=== PATIENT | female | born 1985 | race African-American/Black ===

== ENCOUNTER 2020-11-09 20:41 | Emergency (ER) | payer MEDICAID ==
[~2020-11-09] VITALS: Ht 149.9 cm; Wt 77.0 kg
[2020-11-09] MEDS ORDERED: ONDANSETRON HCL 4MG/2ML INJ IV STA (21:55)
[2020-11-09] MEDS ORDERED: MORPHINE SULFATE 4 MG/ML CPJ (NOT FOR IM USE) IV STA (21:55)
[2020-11-09] MEDS ORDERED: ACETAMINOPHEN 325MG TABLET PO ONE (22:00)
[2020-11-09] MEDS ORDERED: SODIUM CHLORIDE 0.9% 1,000 ML IV ONE (22:00)
[2020-11-09 23:40] LABS: BASOPHILS % 0.8 % (0.0-2.0); EOSINOPHILS % 0.2 % (0.0-5.0); HEMATOCRIT. 41.8 % (36.0-48.0); LYMPHOCYTES % 21.2 % (20.0-50.0); MEAN CORPUSCULAR HEMOGLOBIN 27.9 pg (28.0-32.0); MEAN CORPUSCULAR VOLUME 83.2 fL (81.0-99.0); MEAN PLATELET VOLUME 11.5 fl (7.4-10.4); NEUTROPHILS % 68.8 % (40.0-76.0); PLATELET 150 x1000/uL (130-400); RED BLOOD CELL COUNT 5.02 mill/uL (4.2-5.4); RED CELL DISTRIBUTION WIDTH 13.5 % (11.6-14.6)
[2020-11-09 23:45] LABS: CHLORIDE 103 mEq/L (98-107)
[2020-11-10 00:08] LABS: CLARITY URINE CLOUDY (CLEAR); COLOR URINE DARK YELLOW (YELLOW); KETONES URINE 1+ (NEGATIVE); LEUKOCYTE ESTERASE URINE TRACE (NEGATIVE); NITRITE URINE NEGATIVE (NEGATIVE); OCCULT BLOOD URINE NEGATIVE (NEGATIVE); PROTEIN URINE 1+ (NEGATIVE); SPECIFIC GRAVITY URINE 1.028 (1.005-1.030)
[2020-11-10 00:16] LABS: HCG SCREEN NEGATIVE
[2020-11-10 04:01] VITALS: BP 117/76
== END 2020-11-10 04:02 | disposition home or self-care (01) ==
LOC: ER 20:41
DX: N39.0 Urinary tract infection, site not specified (principal); Z87.442 Personal history of urinary calculi
CPT/HCPCS: 36415; 71045; 76700; 80053; 81003; 83690; 84703; 85025; 93005; 96361; 96374; 96375; 99285; J2270; J2405; J7030

== ENCOUNTER 2022-08-18 09:57 | Emergency (ER) | payer MEDICAID ==
[~2022-08-18] VITALS: Ht 149.9 cm; Wt 82.0 kg
[2022-08-18] MEDS ORDERED: MORPHINE SULFATE 4 MG/ML CPJ (NOT FOR IM USE) IV ONE (11:15)
[2022-08-18 11:58] LABS: CLARITY URINE CLOUDY (CLEAR); COLOR URINE YELLOW (YELLOW); KETONES URINE TRACE (NEGATIVE); LEUKOCYTE ESTERASE URINE NEGATIVE (NEGATIVE); NITRITE URINE NEGATIVE (NEGATIVE); OCCULT BLOOD URINE TRACE (NEGATIVE); PH URINE 6.5 (4.5-8.0); PROTEIN URINE 1+ (NEGATIVE); SPECIFIC GRAVITY URINE 1.036 (1.005-1.030)
[2022-08-18 11:58] LABS: BASOPHILS % 1.1 % (0.0-2.0); EOSINOPHILS % 8.5 % (0.0-5.0); HEMATOCRIT. 40.3 % (36.0-48.0); HEMOGLOBIN. 13.1 g/dL (12.0-16.0); LYMPHOCYTES % 30.1 % (20.0-50.0); MEAN CORPUSCULAR HEMOGLOBIN 27.7 pg (28.0-32.0); MEAN CORPUSCULAR VOLUME 85.3 fL (81.0-99.0); MEAN PLATELET VOLUME 12.6 fl (7.4-10.4); NEUTROPHILS % 54.3 % (40.0-76.0); PLATELET 167 x1000/uL (130-400); RED BLOOD CELL COUNT 4.73 mill/uL (4.2-5.4); RED CELL DISTRIBUTION WIDTH 13.8 % (11.6-14.6)
[2022-08-18 12:00] LABS: CHLORIDE 107 mEq/L (98-107)
[2022-08-18 12:03] LABS: HCG SCREEN NEGATIVE; PROTHROMBIN TIME 10.9 sec (9.6-11.0)
[2022-08-18] MEDS ORDERED: CEPH500T PO (12:57)
[2022-08-18] MEDS ORDERED: ONDA4TAB50 MT (13:12)
[2022-08-18] MEDS ORDERED: OXYC-100 MT ×2 (13:12→15:50)
[2022-08-18] MEDS ORDERED: KETOROLAC 30MG/ML VIAL IV ONE (14:15)
[2022-08-18 14:20] VITALS: BP 122/78
== END 2022-08-18 14:18 | disposition home or self-care (01) ==
LOC: ER 09:57
DX: K80.20 Calculus of gallbladder without cholecystitis without obstruction (principal); N39.0 Urinary tract infection, site not specified; K76.0 Fatty (change of) liver, not elsewhere classified
CPT/HCPCS: 36415; 76705; 80053; 81003; 83690; 84703; 85025; 85610; 96374; 96375; 99284; J1885; J2270

== ENCOUNTER 2022-10-26 06:22 | Emergency (ER) | payer MEDICAID ==
[~2022-10-26] VITALS: Ht 162.6 cm; Wt 98.0 kg
[~2022-10-26 06:22] MED LIST: CEPH500T PO; ONDA4TAB50 MT; OXYC-100 MT
[2022-10-26 06:30] VITALS: BP 120/86
[2022-10-26] MEDS ORDERED: MAGNESIUM/ALUMINUM HYDROXIDE/SIMETHICONE 30ML UDC PO ONE (09:00)
[2022-10-26] MEDS ORDERED: ONDANSETRON 4MG ODT PO ONE (09:00)
[2022-10-26] MEDS ORDERED: FAMOTIDINE 20MG TABLET PO ONE (09:00)
[2022-10-26] MEDS ORDERED: IBUP-2028 MT (12:00)
== END 2022-10-26 12:29 | disposition home or self-care (01) ==
LOC: ER 06:22
DX: J06.9 Acute upper respiratory infection, unspecified (principal); Z20.822 Contact with and (suspected) exposure to COVID-19; Z32.02 Encounter for pregnancy test, result negative
CPT/HCPCS: 81025; 87426; 87804; 99284; Q0162

== ENCOUNTER 2022-12-03 17:36 | Emergency (ER) | payer MEDICAID ==
[~2022-12-03] VITALS: Ht 160 cm; Wt 77.0 kg
[~2022-12-03 17:36] MED LIST changes: +IBUP-2028 MT
[2022-12-03 17:38] VITALS: BP 122/74
[2022-12-03] MEDS ORDERED: ACETAMINOPHEN WITH CODEINE 300/30MG TABLET PO ONE (18:15)
[2022-12-03 19:54] LABS: BASOPHILS % 0.8 % (0.0-2.0); EOSINOPHILS % 4.4 % (0.0-5.0); HEMATOCRIT. 37.5 % (36.0-48.0); HEMOGLOBIN. 12.6 g/dL (12.0-16.0); MEAN CORPUSCULAR HEMOGLOBIN 28.6 pg (28.0-32.0); MEAN CORPUSCULAR VOLUME 84.9 fL (81.0-99.0); MEAN PLATELET VOLUME 11.7 fl (7.4-10.4); MONOCYTES % 3.9 % (2.0-8.0); NEUTROPHILS % 72.9 % (40.0-76.0); PLATELET 167 x1000/uL (130-400); RED BLOOD CELL COUNT 4.42 mill/uL (4.2-5.4); RED CELL DISTRIBUTION WIDTH 13.4 % (11.6-14.6)
[2022-12-03 20:05] LABS: HCG SCREEN NEGATIVE
[2022-12-03 20:13] LABS: CHLORIDE 107 mEq/L (98-107)
[2022-12-03] MEDS ORDERED: IBUP-2030 PO (22:41)
== END 2022-12-04 00:02 | disposition home or self-care (01) ==
LOC: ER 17:36
DX: S82.891A Other fracture of right lower leg, initial encounter for closed fracture (principal); M79.671 Pain in right foot; W01.0XXA Fall on same level from slipping, tripping and stumbling without subsequent striking against object, initial encounter; Y93.89 Activity, other specified; Y92.89 Other specified places as the place of occurrence of the external cause; Y99.8 Other external cause status; Z79.899 Other long term (current) drug therapy
CPT/HCPCS: 29505; 36415; 73590; 73600; 73706; 80053; 81025; 84703; 85025; 99285

== ENCOUNTER 2023-03-23 17:09 | Emergency (ER) | payer MEDICAID ==
[~2023-03-23] VITALS: Ht 149.9 cm; Wt 75.0 kg
[~2023-03-23 17:09] MED LIST changes: +IBUP-2030 PO
[2023-03-23 20:46] LABS: BASOPHILS % 0.7 % (0.0-2.0); HEMATOCRIT. 36.9 % (36.0-48.0); HEMOGLOBIN. 12.3 g/dL (12.0-16.0); LYMPHOCYTES % 18.8 % (20.0-50.0); MEAN CORPUSCULAR HEMOGLOBIN 28.1 pg (28.0-32.0); MEAN PLATELET VOLUME 11.9 fl (7.4-10.4); MONOCYTES % 4.2 % (2.0-8.0); NEUTROPHILS % 74.3 % (40.0-76.0); PLATELET 162 x1000/uL (130-400); RED CELL DISTRIBUTION WIDTH 13.5 % (11.6-14.6)
[2023-03-23 20:52] LABS: CHLORIDE 107 mEq/L (98-107); HCG SCREEN NEGATIVE; PROTHROMBIN TIME 10.7 sec (9.6-11.0)
[2023-03-23] MEDS ORDERED: CEPH500C2 PO (22:54)
[2023-03-23] MEDS ORDERED: CEPHALEXIN 250MG CAPSULE PO ONE (23:00)
[2023-03-23] MEDS ORDERED: LIDOCAINE HCL 1% 20ML VIAL (Pyxis) INJ INFIL ONE (23:15)
[2023-03-24] MEDS ORDERED: OXYCODONE HCL/ACETAMINOPHEN 5/325MG TABLET PO ONE
[2023-03-24 00:11] VITALS: BP 110/80
== END 2023-03-24 00:40 | disposition home or self-care (01) ==
LOC: ER 17:09
DX: L72.0 Epidermal cyst (principal); Z79.899 Other long term (current) drug therapy
CPT/HCPCS: 10060; 36415; 70491; 80048; 81025; 84443; 84703; 85025; 85610; 86850; 86900; 86901; 99285; Z7610

== ENCOUNTER 2023-08-11 17:56 | Emergency (ER) | payer MEDICAID ==
[~2023-08-11] VITALS: Ht 149.9 cm; Wt 75.0 kg
[~2023-08-11 17:56] MED LIST changes: -CEPH500T PO; -IBUP-2028 MT; -IBUP-2030 PO; -OXYC-100 MT
[2023-08-11 18:03] VITALS: O2SAT 99
[2023-08-11 18:33] LABS: CLARITY URINE CLOUDY (CLEAR); COLOR URINE DARK YELLOW (YELLOW); GLUCOSE URINE NEGATIVE (NEGATIVE); KETONES URINE 2+ (NEGATIVE); LEUKOCYTE ESTERASE URINE TRACE (NEGATIVE); NITRITE URINE NEGATIVE (NEGATIVE); OCCULT BLOOD URINE NEGATIVE (NEGATIVE); PROTEIN URINE TRACE (NEGATIVE)
[2023-08-11 18:59] LABS: BASOPHILS % 0.9 % (0.0-2.0); DIFFERENTIAL COMMENT 0; EOSINOPHILS % 4.8 % (0.0-5.0); HEMOGLOBIN. 11.2 g/dL (12.0-16.0); LYMPHOCYTES % 18.9 % (20.0-50.0); MEAN CORPUSCULAR VOLUME 84.8 fL (81.0-99.0); MEAN PLATELET VOLUME 12.1 fl (7.4-10.4); MONOCYTES % 3.9 % (2.0-8.0); NEUTROPHILS % 71.5 % (40.0-76.0); PLATELET 139 x1000/uL (130-400); RED BLOOD CELL COUNT 4.01 mill/uL (4.2-5.4); RED CELL DISTRIBUTION WIDTH 13.1 % (11.6-14.6); WHITE BLOOD COUNT 8.3 x1000/uL (4.5-11.0)
[2023-08-11 19:12] LABS: BACTERIA URINE 2+; RBC URINE 0-2 /hpf (0-2); SQUAMOUS EPITHELIAL CELL URINE 1+ /lpf (RARE/1+); WBC URINE 0-2 /hpf (0-2)
[2023-08-11 19:14] LABS: CHLORIDE 107 mEq/L (98-107); INDEX HEMOLYSI 1 (1-3); INDEX ICTERIC 1 (1-4); INDEX LIPEMIC 1 (1-3); POTASSIUM 3.5 mEq/L (3.5-5.1); SODIUM 138 mEq/L (136-145)
[2023-08-11 19:23] LABS: ALBUMIN 3.3 g/dL (3.4-5.0); ASPARTATE AMINOTRANSFERASE 11 IU/L (15-37); BILIRUBIN TOTAL 0.6 mg/dL (0.1-1.0); CALCIUM 8.3 mg/dL (8.5-10.1); CARBON DIOXIDE 24 mEq/L (21-32); CREATININE 0.6 mg/dL (0.6-1.3); GLUCOSE 83 mg/dL (70-105); PROTEIN TOTAL 7.9 g/dL (6.0-8.3); UREA NITROGEN BLOOD 4 mg/dL (7-21)
[2023-08-11 19:37] LABS: ALANINE AMINOTRANSFERASE 19 IU/L (13-61); B-HCG QUANTITATIVE 128069 mIU/mL (<3)
[2023-08-11] MEDS ORDERED: CEPH500C2 MT (21:43)
[2023-08-11] MEDS ORDERED: TOPUD PO (21:44)
[2023-08-11 21:50] VITALS: BP 121/69; PULSE 84; RESP 18; TEMP 98.2
== END 2023-08-11 21:59 | disposition home or self-care (01) ==
LOC: ER 17:56
DX: O26.891 Other specified pregnancy related conditions, first trimester (principal); R10.2 Pelvic and perineal pain; Z3A.11 11 weeks gestation of pregnancy
CPT/HCPCS: 36415; 76770; 76801; 76857; 80053; 81003; 84702; 85025; 99284

== ENCOUNTER 2023-09-17 09:33 | Inpatient (IN) | payer MEDICAID ==
[~2023-09-17] VITALS: Ht 149.9 cm; Wt 73.5 kg
[~2023-09-17 09:33] MED LIST changes: -ONDA4TAB50 MT; +TOPUD PO
[2023-09-17] MEDS ORDERED: OXYCODONE HCL/ACETAMINOPHEN 5/325MG TABLET PO ONE (10:15)
[2023-09-17 10:52] LABS: BASOPHILS % 0.8 % (0.0-2.0); EOSINOPHILS % 3.1 % (0.0-5.0); HEMOGLOBIN. 11.7 g/dL (12.0-16.0); LYMPHOCYTES % 14.9 % (20.0-50.0); MEAN CORPUSCULAR HEMOGLOBIN 28.2 pg (28.0-32.0); MEAN CORPUSCULAR HGB CONC 33.4 g/dL (31.0-37.0); MEAN CORPUSCULAR VOLUME 84.3 fL (81.0-99.0); MEAN PLATELET VOLUME 12.2 fl (7.4-10.4); MONOCYTES % 5.1 % (2.0-8.0); NEUTROPHILS % 76.1 % (40.0-76.0); PLATELET 150 x1000/uL (130-400); RED BLOOD CELL COUNT 4.16 mill/uL (4.2-5.4); RED CELL DISTRIBUTION WIDTH 12.9 % (11.6-14.6); WHITE BLOOD COUNT 7.4 x1000/uL (4.5-11.0)
[2023-09-17 11:02] LABS: CHLORIDE 106 mEq/L (98-107); INDEX HEMOLYSI 1 (1-3); INDEX ICTERIC 1 (1-4); INDEX LIPEMIC 1 (1-3); SODIUM 138 mEq/L (136-145)
[2023-09-17 11:08] LABS: CLARITY URINE CLEAR (CLEAR); COLOR URINE DARK YELLOW (YELLOW); GLUCOSE URINE NEGATIVE (NEGATIVE); KETONES URINE 2+ (NEGATIVE); LEUKOCYTE ESTERASE URINE 1+ (NEGATIVE); NITRITE URINE POSITIVE (NEGATIVE); OCCULT BLOOD URINE NEGATIVE (NEGATIVE); PROTEIN URINE 1+ (NEGATIVE); SPECIFIC GRAVITY URINE 1.029 (1.005-1.030)
[2023-09-17 11:23] LABS: MUCUS URINE TRACE /lpf (< = 2+); RBC URINE 0-2 /hpf (0-2); SQUAMOUS EPITHELIAL CELL URINE 2+ /lpf (RARE/1+)
[2023-09-17 11:24] LABS: BACTERIA URINE TRACE
[2023-09-17 11:25] LABS: ALANINE AMINOTRANSFERASE 395 IU/L (13-61); ALBUMIN 3.1 g/dL (3.4-5.0); ASPARTATE AMINOTRANSFERASE 452 IU/L (15-37); CALCIUM 8.1 mg/dL (8.5-10.1); CARBON DIOXIDE 28 mEq/L (21-32); CREATININE 0.6 mg/dL (0.6-1.3); GLUCOSE 97 mg/dL (70-105); PROTEIN TOTAL 7.7 g/dL (6.0-8.3); UREA NITROGEN BLOOD 4 mg/dL (7-21)
[2023-09-17] MEDS ORDERED: NITROFURANTOIN 100MG M/M CAPSULE PO ONE (14:15)
[2023-09-17] MEDS ORDERED: ACETAMINOPHEN 325MG TABLET PO PRN (15:45)
[2023-09-17] MEDS ORDERED: POTASSIUM CHLORIDE 20MEQ TABLET SR PO NR (15:45)
[2023-09-17] MEDS ORDERED: IPRATROPIUM/ALBUTEROL 0.5-3(2.5)MG/3ML NEB HHN PRN (15:45)
[2023-09-17] MEDS ORDERED: SODIUM CHLORIDE 0.9% 1,000 ML IV SCH (15:45)
[2023-09-17 17:22] VITALS: PULSE 68; RESP 15
[2023-09-17] MEDS ORDERED: ONDANSETRON 4MG ODT PO ONE (20:30)
[2023-09-17] MEDS ORDERED: ONDANSETRON 4MG ODT PO NR (22:06)
[2023-09-18] VITALS (7 sets, daily range): BP systolic 95–140; BP diastolic 58–75; PULSE 69–80; RESP 17–19; TEMP 97.1–98.1
[2023-09-18] MEDS: ACETAMINOPHEN 325MG TABLET PO PRN (03:33)
[2023-09-18] MEDS: HYDROCODONE/ACETAMINOPHEN 5/325MG TABLET PO PRN ×2 (03:50→11:40)
[2023-09-18] MEDS: SODIUM CHLORIDE 0.9% 1,000 ML IV SCH ×2 (03:51→21:45)
[2023-09-18 07:06] LABS: BASOPHILS % 0.4 % (0.0-2.0); EOSINOPHILS % 4.1 % (0.0-5.0); HEMATOCRIT. 32.5 % (36.0-48.0); HEMOGLOBIN. 10.9 g/dL (12.0-16.0); LYMPHOCYTES % 23.3 % (20.0-50.0); MEAN CORPUSCULAR HEMOGLOBIN 28.8 pg (28.0-32.0); MEAN CORPUSCULAR HGB CONC 33.5 g/dL (31.0-37.0); MEAN CORPUSCULAR VOLUME 86.1 fL (81.0-99.0); MEAN PLATELET VOLUME 11.9 fl (7.4-10.4); MONOCYTES % 5.6 % (2.0-8.0); NEUTROPHILS % 66.6 % (40.0-76.0); PLATELET 135 x1000/uL (130-400); RED BLOOD CELL COUNT 3.78 mill/uL (4.2-5.4); RED CELL DISTRIBUTION WIDTH 13.2 % (11.6-14.6); WHITE BLOOD COUNT 7.3 x1000/uL (4.5-11.0)
[2023-09-18] MEDS ORDERED: NALOXONE HCL 0.4MG/ML VIAL IV PRN (07:15)
[2023-09-18 07:49] LABS: INDEX HEMOLYSI 1 (1-3); INDEX ICTERIC 1 (1-4); INDEX LIPEMIC 1 (1-3)
[2023-09-18 07:50] LABS: CALCIUM 8.1 mg/dL (8.5-10.1); CARBON DIOXIDE 23 mEq/L (21-32); CHLORIDE 108 mEq/L (98-107); GLUCOSE 77 mg/dL (70-105); POTASSIUM 3.3 mEq/L (3.5-5.1); SODIUM 139 mEq/L (136-145); UREA NITROGEN BLOOD 4 mg/dL (7-21)
[2023-09-18 07:54] LABS: ALANINE AMINOTRANSFERASE 341 IU/L (13-61); ASPARTATE AMINOTRANSFERASE 221 IU/L (15-37); BILIRUBIN TOTAL 0.9 mg/dL (0.1-1.0); CREATININE 0.5 mg/dL (0.6-1.3); PROTEIN TOTAL 7.3 g/dL (6.0-8.3)
[2023-09-18] MEDS: NITROFURANTOIN 100MG M/M CAPSULE PO SCH ×2 (08:20→21:45)
[2023-09-18 10:06] LABS: BILIRUBIN DIRECT 0.2 mg/dL (0.0-0.2); BILIRUBIN TOTAL 0.9 mg/dL (0.1-1.0); PROTEIN TOTAL 7.5 g/dL (6.0-8.3)
[2023-09-18 12:01] LABS: *AMPHETAMINES SCREEN URINE NEGATIVE (NEGATIVE); *BARBITURATES SCREEN URINE NEGATIVE (NEGATIVE); *BENZODIAZEPINES SCREEN URINE NEGATIVE (NEGATIVE); *COCAINE SCREEN URINE NEGATIVE (NEGATIVE); CANNABINOID URINE SCREEN NEGATIVE (NEGATIVE); ECSTASY MDMA SCREEN URINE NEGATIVE (NEGATIVE); OPIATES URINE SCREEN NEGATIVE (NEGATIVE); PHENCYCLIDINE URINE SCREEN NEGATIVE (NEGATIVE)
[2023-09-18 12:23] LABS: HEPATITIS B SURFACE ANTIGEN NEGATIVE
[2023-09-18 12:53] LABS: HEPATITIS C VIR.AB 0.06 INDEXVAL (0.00-0.80)
[2023-09-18] MEDS: HYDROMORPHONE HCL/PF 2MG/ML CPJ IV PRN (13:04)
[2023-09-18 13:42] LABS: METHADONE URINE SCREEN INVALID (NEGATIVE)
[2023-09-18] MEDS: ONDANSETRON HCL 4MG/2ML INJ IV PRN (17:38)
[2023-09-19] VITALS: BP 117/56; PULSE 82; RESP 20; TEMP 97.2
[2023-09-19 04:00] VITALS: BP 108/55; PULSE 83; RESP 20; TEMP 97.9
[2023-09-19] MEDS: ONDANSETRON HCL 4MG/2ML INJ IV PRN (07:01)
[2023-09-19 07:13] LABS: BILIRUBIN DIRECT 0.2 mg/dL (0.0-0.2); BILIRUBIN TOTAL 0.9 mg/dL (0.1-1.0); PROTEIN TOTAL 7.6 g/dL (6.0-8.3)
[2023-09-19] MEDS: HYDROMORPHONE HCL/PF 2MG/ML CPJ IV PRN ×3 (07:18→20:54)
[2023-09-19 08:00] VITALS: BP 112/71; PULSE 86; RESP 18; TEMP 97.7
[2023-09-19] MEDS: NITROFURANTOIN 100MG M/M CAPSULE PO SCH ×2 (09:00→20:51)
[2023-09-19 12:06] VITALS: BP 112/68; PULSE 72; RESP 19; TEMP 97.7
[2023-09-19] MEDS: SODIUM CHLORIDE 0.9% 1,000 ML IV SCH (13:05)
[2023-09-19 16:00] VITALS: BP 95/54; PULSE 72; RESP 18; TEMP 97.5
[2023-09-19 20:00] VITALS: BP 93/57; PULSE 75; RESP 20; TEMP 98.1
[2023-09-20] VITALS: BP 104/66; PULSE 74; RESP 18; TEMP 97.8
[2023-09-20 04:00] VITALS: BP 89/44; PULSE 80; RESP 20; TEMP 97.2
[2023-09-20] MEDS: ACETAMINOPHEN 325MG TABLET PO PRN (04:00)
[2023-09-20] MEDS: SODIUM CHLORIDE 0.9% 1,000 ML IV SCH ×2 (06:37→22:14)
[2023-09-20 06:50] LABS: BASOPHILS % 0.5 % (0.0-2.0); EOSINOPHILS % 3.1 % (0.0-5.0); HEMATOCRIT. 29.7 % (36.0-48.0); LYMPHOCYTES % 14.6 % (20.0-50.0); MEAN CORPUSCULAR HEMOGLOBIN 28.5 pg (28.0-32.0); MEAN CORPUSCULAR HGB CONC 33.7 g/dL (31.0-37.0); MEAN CORPUSCULAR VOLUME 84.5 fL (81.0-99.0); MEAN PLATELET VOLUME 12.1 fl (7.4-10.4); MONOCYTES % 4.8 % (2.0-8.0); PLATELET 121 x1000/uL (130-400); RED BLOOD CELL COUNT 3.52 mill/uL (4.2-5.4); RED CELL DISTRIBUTION WIDTH 13.3 % (11.6-14.6); WHITE BLOOD COUNT 7.5 x1000/uL (4.5-11.0)
[2023-09-20 08:00] VITALS: BP 110/67; PULSE 91; RESP 20; TEMP 98.4
[2023-09-20 08:39] LABS: CHLORIDE 108 mEq/L (98-107); INDEX HEMOLYSI 1 (1-3); INDEX ICTERIC 1 (1-4); INDEX LIPEMIC 1 (1-3); POTASSIUM 2.9 mEq/L (3.5-5.1); SODIUM 138 mEq/L (136-145)
[2023-09-20 08:47] LABS: ALANINE AMINOTRANSFERASE 238 IU/L (13-61); ALBUMIN 2.5 g/dL (3.4-5.0); ASPARTATE AMINOTRANSFERASE 92 IU/L (15-37); BILIRUBIN DIRECT 0.2 mg/dL (0.0-0.2); BILIRUBIN TOTAL 1.2 mg/dL (0.1-1.0); CARBON DIOXIDE 23 mEq/L (21-32); CREATININE 0.6 mg/dL (0.6-1.3); GLUCOSE 78 mg/dL (70-105); PROTEIN TOTAL 6.3 g/dL (6.0-8.3); UREA NITROGEN BLOOD 2 mg/dL (7-21)
[2023-09-20] MEDS: NITROFURANTOIN 100MG M/M CAPSULE PO SCH ×2 (09:46→20:36)
[2023-09-20] MEDS: ONDANSETRON HCL 4MG/2ML INJ IV PRN (11:21)
[2023-09-20 12:00] VITALS: BP 126/75; PULSE 79; RESP 18; TEMP 99.5
[2023-09-20 16:00] VITALS: BP 109/65; PULSE 86; RESP 18; TEMP 98.4
[2023-09-20 20:00] VITALS: BP 104/66; PULSE 96; RESP 20; TEMP 97.7
[2023-09-20] MEDS: HYDROMORPHONE HCL/PF 2MG/ML CPJ IV PRN (20:37)
[2023-09-21] VITALS: BP 108/60; PULSE 100; RESP 20; TEMP 97.2
[2023-09-21 04:00] VITALS: BP 105/63; PULSE 82; RESP 20; TEMP 97.1
[2023-09-21] MEDS ORDERED: POTASSIUM CHLORIDE 20MEQ/PACKET PO NR (06:15)
[2023-09-21 08:00] VITALS: BP 101/63; PULSE 91; RESP 20; TEMP 97.7
[2023-09-21 08:30] LABS: ALBUMIN 2.7 g/dL (3.4-5.0); BILIRUBIN DIRECT 0.2 mg/dL (0.0-0.2); BILIRUBIN TOTAL 0.6 mg/dL (0.1-1.0); PROTEIN TOTAL 6.8 g/dL (6.0-8.3)
[2023-09-21] MEDS: NITROFURANTOIN 100MG M/M CAPSULE PO SCH (08:53)
[2023-09-21] MEDS: POTASSIUM CHLORIDE 20MEQ/PACKET PO NR ×2 (09:46→09:56)
[2023-09-21] MEDS: ONDANSETRON HCL 4MG/2ML INJ IV PRN (10:11)
[2023-09-21 12:00] VITALS: BP 117/63; PULSE 76; RESP 20; TEMP 97.5
[2023-09-21] MEDS ORDERED: NITR-87 MT (12:36)
[2023-09-21 16:00] VITALS: BP 82/47; PULSE 82; RESP 19; TEMP 98.1
[2023-09-21 16:44] VITALS: BP 90/60; PULSE 80; TEMP 98; O2SAT 95
== END 2023-09-21 18:04 | disposition home or self-care (01) | DRG 566 ==
LOC: ER 09:40 → 6EST 15:28 → EDBEDREQTM 15:31 → EDBEDREQ 15:31 → 6EST 23:03
PROVIDERS: ADMIT Internal Medicine; ATTEND Internal Medicine
DX: O99.612 Diseases of the digestive system complicating pregnancy, second trimester (principal); N13.6 Pyonephrosis; E88.09 Other disorders of plasma-protein metabolism, not elsewhere classified; E87.6 Hypokalemia; K82.8 Other specified diseases of gallbladder; R74.01 Elevation of levels of liver transaminase levels; O23.02 Infections of kidney in pregnancy, second trimester; K80.20 Calculus of gallbladder without cholecystitis without obstruction; O99.282 Endocrine, nutritional and metabolic diseases complicating pregnancy, second trimester; Z3A.16 16 weeks gestation of pregnancy
CPT/HCPCS: 36415; 74181; 76705; 76805; 76815; 80048; 80053; 80076; 80305; 81003; 84702; 85025; 86803; 87340; 94640; 99285; J1170; J2405; J7030; Q0162

== ENCOUNTER 2023-10-18 17:34 | Emergency (ER) | payer MEDICAID ==
[~2023-10-18] VITALS: Ht 157.5 cm; Wt 91.0 kg
[~2023-10-18 17:34] MED LIST changes: +NITR-87 MT
[2023-10-18 17:40] VITALS: O2SAT 97
[2023-10-18 18:09] LABS: BASOPHILS % 0.8 % (0.0-2.0); DIFFERENTIAL COMMENT 0; EOSINOPHILS % 2.6 % (0.0-5.0); HEMATOCRIT. 35.1 % (36.0-48.0); HEMOGLOBIN. 11.9 g/dL (12.0-16.0); LYMPHOCYTES % 13.4 % (20.0-50.0); MEAN CORPUSCULAR HEMOGLOBIN 29.1 pg (28.0-32.0); MEAN CORPUSCULAR HGB CONC 34.1 g/dL (31.0-37.0); MEAN CORPUSCULAR VOLUME 85.4 fL (81.0-99.0); MEAN PLATELET VOLUME 12.4 fl (7.4-10.4); MONOCYTES % 4.7 % (2.0-8.0); NEUTROPHILS % 78.5 % (40.0-76.0); PLATELET 174 x1000/uL (130-400); RED BLOOD CELL COUNT 4.11 mill/uL (4.2-5.4); RED CELL DISTRIBUTION WIDTH 12.9 % (11.6-14.6); WHITE BLOOD COUNT 9.5 x1000/uL (4.5-11.0)
[2023-10-18] MEDS ORDERED: MORPHINE SULFATE 2 MG/ML CPJ (NOT FOR IM USE) IV ONE ×2 (18:15→19:30)
[2023-10-18] MEDS ORDERED: SODIUM CHLORIDE 0.9% 1,000 ML IV ONE (18:15)
[2023-10-18 18:18] LABS: PROTHROMBIN TIME 10.3 sec (9.6-11.0)
[2023-10-18 19:28] LABS: ALANINE AMINOTRANSFERASE 24 IU/L (10-49); ALBUMIN 3.8 g/dL (3.2-4.8); ASPARTATE AMINOTRANSFERASE 25 IU/L (<34); BILIRUBIN TOTAL 0.6 mg/dL (0.1-1.0); CALCIUM 8.5 mg/dL (8.7-10.4); CARBON DIOXIDE 21 mEq/L (21-32); CHLORIDE 107 mEq/L (98-107); CREATININE 0.8 mg/dL (0.6-1.0); GLUCOSE 96 mg/dL (70-105); POTASSIUM 3.6 mEq/L (3.5-5.1); SODIUM 139 mEq/L (136-145)
[2023-10-18 19:30] LABS: UREA NITROGEN BLOOD < 5 mg/dL (9-23)
[2023-10-18 19:44] LABS: B-HCG QUANTITATIVE 37486 mIU/mL (<3)
[2023-10-18 19:52] LABS: CLARITY URINE CLEAR (CLEAR); COLOR URINE DARK YELLOW (YELLOW); GLUCOSE URINE NEGATIVE (NEGATIVE); KETONES URINE 1+ (NEGATIVE); LEUKOCYTE ESTERASE URINE TRACE (NEGATIVE); NITRITE URINE NEGATIVE (NEGATIVE); OCCULT BLOOD URINE NEGATIVE (NEGATIVE); PROTEIN URINE 1+ (NEGATIVE); SPECIFIC GRAVITY URINE 1.026 (1.005-1.030)
[2023-10-18 19:55] LABS: YEAST URINE NONE SEEN
[2023-10-18 20:11] LABS: BACTERIA URINE 1+; RBC URINE 0-2 /hpf (0-2); SQUAMOUS EPITHELIAL CELL URINE FEW /lpf (RARE/1+)
[2023-10-18] MEDS ORDERED: PIPERACILLIN/TAZ 3.375G PREMIX 50 ML IV ONE (20:45)
[2023-10-18 21:00] VITALS: TEMP 98.1
[2023-10-18 23:45] VITALS: BP 108/62; PULSE 89; RESP 18
[2023-10-19] MEDS ORDERED: MORPHINE SULFATE 2 MG/ML CPJ (NOT FOR IM USE) IV ONE
== END 2023-10-19 | disposition short-term general hospital (02) ==
LOC: ER 17:34 → CANBEDREQ 10-20 14:15
DX: O99.612 Diseases of the digestive system complicating pregnancy, second trimester (principal); O99.891 Other specified diseases and conditions complicating pregnancy; K80.20 Calculus of gallbladder without cholecystitis without obstruction; R10.2 Pelvic and perineal pain; Z3A.20 20 weeks gestation of pregnancy; Z98.890 Other specified postprocedural states; Z20.822 Contact with and (suspected) exposure to COVID-19
CPT/HCPCS: 80053; 81003; 84702; 83690; 85025; 85610; 86850; 86900; 86901; 86592; 36415; 76705; 76805; 96361; 96365; 96375; 96376; 99285; 87426; J2543; J2270; J7030; C9803; Z7610

== ENCOUNTER 2023-11-09 15:23 | Emergency (ER) | payer MEDICAID ==
[~2023-11-09] VITALS: Ht 157.5 cm; Wt 68.0 kg
[2023-11-09 15:49] VITALS: O2SAT 99
[2023-11-09 16:30] LABS: BASOPHILS % 0.5 % (0.0-2.0); EOSINOPHILS % 2.5 % (0.0-5.0); HEMATOCRIT. 31.4 % (36.0-48.0); HEMOGLOBIN. 10.8 g/dL (12.0-16.0); LYMPHOCYTES % 13.6 % (20.0-50.0); MEAN CORPUSCULAR HEMOGLOBIN 29.1 pg (28.0-32.0); MEAN CORPUSCULAR HGB CONC 34.4 g/dL (31.0-37.0); MEAN CORPUSCULAR VOLUME 84.8 fL (81.0-99.0); MEAN PLATELET VOLUME 11.4 fl (7.4-10.4); MONOCYTES % 3.9 % (2.0-8.0); NEUTROPHILS % 79.5 % (40.0-76.0); PLATELET 167 x1000/uL (130-400); RED CELL DISTRIBUTION WIDTH 13.2 % (11.6-14.6)
[2023-11-09 17:01] LABS: ALANINE AMINOTRANSFERASE 14 IU/L (10-49); ALBUMIN 3.6 g/dL (3.2-4.8); ASPARTATE AMINOTRANSFERASE 15 IU/L (<34); BILIRUBIN TOTAL 0.7 mg/dL (0.1-1.0); CALCIUM 8.2 mg/dL (8.7-10.4); CARBON DIOXIDE 23 mEq/L (21-32); CHLORIDE 105 mEq/L (98-107); CREATININE 0.5 mg/dL (0.6-1.0); GLUCOSE 82 mg/dL (70-105); POTASSIUM 3.6 mEq/L (3.5-5.1); SODIUM 138 mEq/L (136-145); UREA NITROGEN BLOOD 6 mg/dL (9-23)
[2023-11-09 17:27] LABS: CLARITY URINE CLOUDY (CLEAR); COLOR URINE DARK YELLOW (YELLOW); GLUCOSE URINE NEGATIVE (NEGATIVE); KETONES URINE NEGATIVE (NEGATIVE); LEUKOCYTE ESTERASE URINE TRACE (NEGATIVE); NITRITE URINE NEGATIVE (NEGATIVE); OCCULT BLOOD URINE NEGATIVE (NEGATIVE); PH URINE 6.5 (4.5-8.0); PROTEIN URINE TRACE (NEGATIVE); SPECIFIC GRAVITY URINE 1.018 (1.005-1.030)
[2023-11-09 17:49] LABS: BACTERIA URINE 2+; RBC URINE 0-2 /hpf (0-2); SQUAMOUS EPITHELIAL CELL URINE 3+ /lpf (RARE/1+)
[2023-11-09] MEDS ORDERED: HYDROCODONE/ACETAMINOPHEN 5/325MG TABLET PO ONE (19:00)
[2023-11-09] MEDS ORDERED: ONDANSETRON 4MG ODT PO ONE (19:00)
[2023-11-09] MEDS ORDERED: ACET-2708 MT (19:37)
[2023-11-09] MEDS ORDERED: CEPH500C2 MT (19:37)
[2023-11-09 20:00] VITALS: BP 102/62; PULSE 93; RESP 19; TEMP 98.3
== END 2023-11-09 20:15 | disposition home or self-care (01) ==
LOC: ER 15:23
DX: O26.892 Other specified pregnancy related conditions, second trimester (principal); H92.01 Otalgia, right ear; R51.9 Headache, unspecified; Z3A.20 20 weeks gestation of pregnancy
CPT/HCPCS: 80053; 81003; 81025; 83690; 85025; 36415; 76815; 99284; Q0162; Z7610 ×2; C1893; 99283

== ENCOUNTER 2023-11-28 20:09 | Emergency (ER) | payer MEDICAID ==
[~2023-11-28] VITALS: Ht 149.9 cm; Wt 77.0 kg
[~2023-11-28 20:09] MED LIST changes: +ACET-2708 MT; +CEPH500C2 MT
[2023-11-28 20:13] VITALS: O2SAT 100
[2023-11-28 20:20] VITALS: TEMP 97.5
[2023-11-28] MEDS ORDERED: DIPHENHYDRAMINE 50MG/ML VIAL IV ONE (20:45)
[2023-11-28] MEDS ORDERED: SODIUM CHLORIDE 0.9% 1,000 ML IV ONE (20:45)
[2023-11-28 20:47] LABS: CLARITY URINE CLOUDY (CLEAR); COLOR URINE DARK YELLOW (YELLOW); GLUCOSE URINE NEGATIVE (NEGATIVE); KETONES URINE TRACE (NEGATIVE); LEUKOCYTE ESTERASE URINE TRACE (NEGATIVE); NITRITE URINE NEGATIVE (NEGATIVE); OCCULT BLOOD URINE NEGATIVE (NEGATIVE); PH URINE 6.5 (4.5-8.0); PROTEIN URINE TRACE (NEGATIVE); SPECIFIC GRAVITY URINE 1.033 (1.005-1.030)
[2023-11-28 21:08] LABS: BACTERIA URINE 2+; RBC URINE 0-2 /hpf (0-2); SQUAMOUS EPITHELIAL CELL URINE 3+ /lpf (RARE/1+)
[2023-11-28 21:12] LABS: BASOPHILS % 0.1 % (0.0-2.0); DIFFERENTIAL COMMENT 0; EOSINOPHILS % 1.9 % (0.0-5.0); HEMATOCRIT. 30.1 % (36.0-48.0); HEMOGLOBIN. 10.2 g/dL (12.0-16.0); LYMPHOCYTES % 14.2 % (20.0-50.0); MEAN CORPUSCULAR HGB CONC 33.8 g/dL (31.0-37.0); MEAN CORPUSCULAR VOLUME 85.9 fL (81.0-99.0); MEAN PLATELET VOLUME 11.9 fl (7.4-10.4); MONOCYTES % 3.9 % (2.0-8.0); NEUTROPHILS % 79.9 % (40.0-76.0); PLATELET 184 x1000/uL (130-400); RED BLOOD CELL COUNT 3.51 mill/uL (4.2-5.4); RED CELL DISTRIBUTION WIDTH 13.2 % (11.6-14.6); WHITE BLOOD COUNT 9.9 x1000/uL (4.5-11.0)
[2023-11-28 21:28] LABS: ALANINE AMINOTRANSFERASE 15 IU/L (10-49); ALBUMIN 3.6 g/dL (3.2-4.8); ASPARTATE AMINOTRANSFERASE 19 IU/L (<34); BILIRUBIN TOTAL 0.5 mg/dL (0.1-1.0); CALCIUM 8.4 mg/dL (8.7-10.4); CARBON DIOXIDE 21 mEq/L (21-32); CHLORIDE 107 mEq/L (98-107); CREATININE 0.5 mg/dL (0.6-1.0); GLUCOSE 93 mg/dL (70-105); POTASSIUM 3.2 mEq/L (3.5-5.1); SODIUM 138 mEq/L (136-145); UREA NITROGEN BLOOD 8 mg/dL (9-23)
[2023-11-28] MEDS ORDERED: CEPH500T MT (22:30)
[2023-11-28 22:48] VITALS: BP 107/55; PULSE 77; RESP 13
== END 2023-11-28 22:49 | disposition home or self-care (01) ==
LOC: ER 20:09
DX: O99.342 Other mental disorders complicating pregnancy, second trimester (principal); O99.612 Diseases of the digestive system complicating pregnancy, second trimester; K80.50 Calculus of bile duct without cholangitis or cholecystitis without obstruction; Z3A.24 24 weeks gestation of pregnancy; Z98.890 Other specified postprocedural states
CPT/HCPCS: 80053; 81003; 85025; 86850; 86900; 86901; 36415; 76705; 76815; 96361; 96374; 99285; J1200; J7030; Z7610

== ENCOUNTER 2023-12-26 15:55 | Emergency (ER) | payer MEDICAID ==
[~2023-12-26] VITALS: Ht 165.1 cm; Wt 79.4 kg
[~2023-12-26 15:55] MED LIST changes: +CEPH500T MT
[2023-12-26] MEDS: ONDANSETRON HCL 4MG/2ML INJ IV STA (16:13)
[2023-12-26] MEDS: SODIUM CHLORIDE 0.9% 1,000 ML IV ONE (16:15)
[2023-12-26 16:45] LABS: BASOPHILS % 0.8 % (0.0-2.0); EOSINOPHILS % 1.8 % (0.0-5.0); HEMATOCRIT. 30.3 % (36.0-48.0); HEMOGLOBIN. 10.1 g/dL (12.0-16.0); LYMPHOCYTES % 15.5 % (20.0-50.0); MEAN CORPUSCULAR HEMOGLOBIN 28.7 pg (28.0-32.0); MEAN CORPUSCULAR HGB CONC 33.5 g/dL (31.0-37.0); MEAN CORPUSCULAR VOLUME 85.7 fL (81.0-99.0); MEAN PLATELET VOLUME 11.6 fl (7.4-10.4); MONOCYTES % 4.7 % (2.0-8.0); NEUTROPHILS % 77.2 % (40.0-76.0); PLATELET 181 x1000/uL (130-400); RED BLOOD CELL COUNT 3.54 mill/uL (4.2-5.4); RED CELL DISTRIBUTION WIDTH 13.7 % (11.6-14.6); WHITE BLOOD COUNT 10.3 x1000/uL (4.5-11.0)
[2023-12-26 16:56] LABS: INR 0.9; PARTIAL THROMBOPLASTIN TIME 26.5 sec (23.4-31.0)
[2023-12-26 16:58] LABS: ALANINE AMINOTRANSFERASE 11 IU/L (10-49); ALBUMIN 3.6 g/dL (3.2-4.8); ASPARTATE AMINOTRANSFERASE 15 IU/L (<34); BILIRUBIN TOTAL 0.4 mg/dL (0.1-1.0); CALCIUM 8.2 mg/dL (8.7-10.4); CARBON DIOXIDE 21 mEq/L (21-32); CHLORIDE 106 mEq/L (98-107); CREATININE 0.8 mg/dL (0.6-1.0); GLUCOSE 89 mg/dL (70-105); POTASSIUM 3.5 mEq/L (3.5-5.1); PROTEIN TOTAL 6.6 g/dL (6.0-8.3); SODIUM 137 mEq/L (136-145); UREA NITROGEN BLOOD 5 mg/dL (9-23)
[2023-12-26] MEDS: ONDANSETRON HCL 4MG/2ML INJ IV NR (18:19)
[2023-12-26 19:23] LABS: CLARITY URINE TURBID (CLEAR); COLOR URINE YELLOW (YELLOW); GLUCOSE URINE NEGATIVE (NEGATIVE); KETONES URINE NEGATIVE (NEGATIVE); LEUKOCYTE ESTERASE URINE TRACE (NEGATIVE); NITRITE URINE NEGATIVE (NEGATIVE); OCCULT BLOOD URINE NEGATIVE (NEGATIVE); PROTEIN URINE TRACE (NEGATIVE)
[2023-12-26 19:41] LABS: WBC URINE 0-2 /hpf (0-2)
[2023-12-26 19:42] LABS: BACTERIA URINE TRACE; RBC URINE NONE SEEN /hpf (0-2); SQUAMOUS EPITHELIAL CELL URINE 3+ /lpf (RARE/1+)
[2023-12-26] MEDS: MORPHINE SULFATE 2 MG/ML CPJ (NOT FOR IM USE) IV ONE (21:03)
[2023-12-26] MEDS: ACETAMINOPHEN 325MG TABLET PO ONE (21:04)
[2023-12-26 22:20] VITALS: BP 111/71; PULSE 83; RESP 16; TEMP 98.2
== END 2023-12-26 22:50 | disposition short-term general hospital (02) ==
LOC: ER 15:55
DX: O99.613 Diseases of the digestive system complicating pregnancy, third trimester (principal); K80.50 Calculus of bile duct without cholangitis or cholecystitis without obstruction; Z3A.30 30 weeks gestation of pregnancy; Z98.890 Other specified postprocedural states
CPT/HCPCS: 99285; 96374; 76705; 76805; 96361; 96375; 86592; 80053; 81003; 85025; 85610; 85730; 86900; 86901; 86706; 36415; J2405; J2270; J7030

== ENCOUNTER 2024-03-04 08:55 | Emergency (ER) | payer MEDICAID ==
[~2024-03-04] VITALS: Ht 160 cm; Wt 86.0 kg
[2024-03-04 09:07] VITALS: O2SAT 100
[2024-03-04 09:38] LABS: BASOPHILS % 0.5 % (0.0-2.0); EOSINOPHILS % 4.7 % (0.0-5.0); HEMATOCRIT. 32.7 % (36.0-48.0); HEMOGLOBIN. 10.7 g/dL (12.0-16.0); MEAN CORPUSCULAR HEMOGLOBIN 28.9 pg (28.0-32.0); MEAN CORPUSCULAR HGB CONC 32.8 g/dL (31.0-37.0); MEAN CORPUSCULAR VOLUME 88.2 fL (81.0-99.0); MEAN PLATELET VOLUME 11.1 fl (7.4-10.4); MONOCYTES % 5.4 % (2.0-8.0); NEUTROPHILS % 68.4 % (40.0-76.0); PLATELET 183 x1000/uL (130-400); RED CELL DISTRIBUTION WIDTH 14.4 % (11.6-14.6)
[2024-03-04 10:02] LABS: ALANINE AMINOTRANSFERASE 28 IU/L (10-49); ASPARTATE AMINOTRANSFERASE 23 IU/L (<34); BILIRUBIN TOTAL 0.5 mg/dL (0.1-1.0); CALCIUM 7.9 mg/dL (8.7-10.4); CARBON DIOXIDE 26 mEq/L (21-32); CHLORIDE 108 mEq/L (98-107); CREATININE 0.6 mg/dL (0.6-1.0); GLUCOSE 82 mg/dL (70-105); POTASSIUM 3.2 mEq/L (3.5-5.1); PROTEIN TOTAL 7.4 g/dL (6.0-8.3); SODIUM 140 mEq/L (136-145); UREA NITROGEN BLOOD 12 mg/dL (9-23)
[2024-03-04] MEDS: KETOROLAC 60MG/2ML VIAL IM ONE (10:33)
[2024-03-04] MEDS: ONDANSETRON 4MG ODT PO ONE (10:34)
[2024-03-04] MEDS: ACETAMINOPHEN 325MG TABLET PO ONE (11:44)
[2024-03-04 11:45] LABS: CLARITY URINE CLEAR (CLEAR); COLOR URINE YELLOW (YELLOW); GLUCOSE URINE NEGATIVE (NEGATIVE); KETONES URINE TRACE (NEGATIVE); LEUKOCYTE ESTERASE URINE TRACE (NEGATIVE); NITRITE URINE NEGATIVE (NEGATIVE); OCCULT BLOOD URINE NEGATIVE (NEGATIVE); PROTEIN URINE TRACE (NEGATIVE); SPECIFIC GRAVITY URINE 1.034 (1.005-1.030)
[2024-03-04 12:11] LABS: BACTERIA URINE TRACE; RBC URINE 0-2 /hpf (0-2); SQUAMOUS EPITHELIAL CELL URINE 2+ /lpf (RARE/1+); YEAST URINE NONE SEEN
[2024-03-04] MEDS: MORPHINE SULFATE 4 MG/ML INJ (FOR IV/IM USE) IM NR (14:07)
[2024-03-04] MEDS ORDERED: KETO10TA2 MT (14:55)
[2024-03-04] MEDS ORDERED: ONDA4TAB11 PO (14:55)
[2024-03-04 16:23] VITALS: BP 134/78; PULSE 70; RESP 18; TEMP 98.5
== END 2024-03-04 16:48 | disposition home or self-care (01) ==
LOC: ER 08:55
DX: K80.20 Calculus of gallbladder without cholecystitis without obstruction (principal); Z87.19 Personal history of other diseases of the digestive system
CPT/HCPCS: 80053; 81003; 81025; 84702; 83690; 85025; 36415; 74176; 76705; 96372; 99285; Q0162; J1885; J2270; Z7610